=== PATIENT | male | born 1970 | race Caucasian/White ===

== ENCOUNTER 2016-11-18 15:48 | Emergency (ER) | payer BC ==
--- NOTE | 2016-11-18 16:14 | ED Physician Documentation ---
Abdominal Pain - HISTORIAN Historian: patient - HPI Stated Complaint: abd pressure Chief Complaint: Abdominal Pain Additonal Information: onset 0600 pulsating ulq abd pressure persists slightly worse as day progresses Onset: other (this am) Duration: waxing, waning Timing: worse Context: denies: out of country travel, bad food Severity: moderate Quality: other (pressure) Associated Symptoms: none, other (had normal brown BM this am). denies: fever, chills, nausea, vomiting, diarrhea, back pain, neck pain - ROS CONST: no problems GI/: denies: constipation, black stools, bloody stools, dark urine, problems urinating CVS/RESP: none EYES/ENT: none MS/SKIN/LYMPH: none NEURO/PSYCH: none - SOCIAL HX Smoking History: non-smoker Alcohol Use: occasionally Drug Use: none - FAMILY HX Family History: no significant history - PAST HX Past History: GERD, other (pulmonary embolus) Other History: none Surgeries/Procedures: other (bilat ing hernia) Home Medications: Ambulatory Orders Medication Instructions Recorded Omeprazole [Prilosec] 20 mg PO DAILY 11/18/16 Rivaroxaban [Xarelto] 10 mg PO DAILY 11/18/16 Allergies/Adverse Reactions: Allergies Allergy/AdvReac Type Severity Reaction Status Date / Time No Known Allergies Allergy Verified 11/18/16 16:09 - VITAL SIGNS Vital Signs: Vital Signs Temp Pulse Resp BP Pulse Ox 98.3 F 85 22 140/87 96 11/18/16 16:00 11/18/16 16:00 11/18/16 16:00 11/18/16 16:00 11/18/16 16:00 - REVIEWED ASSESSMENTS Nursing Assessment Reviewed: Yes Vitals Reviewed: Yes ED Results Lab/Radiology - Lab Results Lab Results: Lab Results 11/18/16 11/18/16 11/18/16 16:30 16:30 16:30 WBC 8.00 K/ul K/ul (4.00-12.00) RBC 4.67 M/ul M/ul (3.90-5.20) Hgb 14.8 g/dL g/dL (12.0-18.0) Hct 42.1 % % (37.0-53.0) MCV 90.2 fl fl (80.0-100.0) MCH 31.7 pg pg (28.0-34.0) MCHC 35.1 g/dL g/dL (30.0-36.0) RDW 12.8 % % (11.3-14.3) Plt Count 219 K/mm3 K/mm3 (130-400) Neut % (Auto) 59.6 % % (39.0-79.0) Lymph % (Auto) 30.5 % % (16.0-50.0) [place] % (Auto) 4.2 % % (0.0-11.0) Eos % (Auto) 3.0 % % (0.0-6.8) Baso % (Auto) 1.3 (0.0-1.5) Neut # (Auto) 4.8 # k/uL # k/uL (1.4-7.7) Lymph # (Auto) 2.4 # k/uL # k/uL (0.6-4.0) [place] # (Auto) 0.3 # k/uL # k/uL (0.0-0.9) Eos # (Auto) 0.2 # k/uL # k/uL (0.0-0.6) Baso # (Auto) 0.1 # k/uL # k/uL (0.0-0.5) Reactive Lymphs % 1.5 % % (0.0-5.0) Reactive Lymphs # 0.1 # k/uL # k/uL (0.0-0.8) Sodium 140 mmol/L mmol/L (136-145) Potassium 3.6 mmol/L mmol/L (3.5-5.0) Chloride 104 mmol/L mmol/L (98-110) Carbon Dioxide 28 mmol/L mmol/L (20-32) BUN 16 mg/dL mg/dL (10-26) Creatinine 1.2 mg/dL mg/dL (0.4-1.5) Estimated Creat Clear 129 Est GFR ( Amer) > 60 (60 - ) Est GFR (Non-Af Amer) > 60 (60 - ) Glucose 101 mg/dL H mg/dL (70-99) Calcium 9.9 mg/dL mg/dL (8.5-10.5) Total Bilirubin 0.4 mg/dL mg/dL (0.2-1.2) AST 28 U/L U/L (0-41) ALT 39 U/L U/L (0-45) Alkaline Phosphatase 73 U/L U/L (46-116) Total Protein 8.2 g/dL g/dL (6.0-8.5) Albumin 4.9 g/dL g/dL (3.0-5.5) Amylase 81 U/L U/L (20-104) Urine Color Yellow (YELLOW) Urine Appearance Clear (CLEAR) Urine pH 6.0 (5.0 - 8.0) Ur Specific [place] 1.025 (1.010-1.030) Urine Protein Negative mg/dL mg/dL (NEGATIVE) Urine Ketones 2+ mg/dL H mg/dL (NEGATIVE) Urine Occult Blood Trace-intact (NEGATIVE) Urine Nitrite Negative (NEGATIVE) Urine Bilirubin Negative (NEGATIVE) Urine Urobilinogen 0.2 Eu Eu (0.2-1.0) Ur Leukocyte Esterase Negative (NEGATIVE) Urine Glucose Negative mg/dL mg/dL (NEGATIVE) - Orders Orders: ED Orders Category Date Time Status CT ABD & PELVIS W & W/O CON Stat Exams 11/18/16 Taken AMYLASE Routine Lab 11/18/16 16:30 Completed CBC/PLATELET/DIFF Routine Lab 11/18/16 16:30 Completed CMP Routine Lab 11/18/16 16:30 Completed URINALYSIS Routine Lab 11/18/16 16:30 Completed Abdominal Pain Physical Exam - Physical Exam General Appearance: mild distress, moderate distress NECK: normal inspection, supple RESPIRATORY: no resp distress, breath sounds normal CVS: reg rate & rhythm, heart sounds normal ABDOMEN: soft ([id number] relieves symptoms slightly) BACK: normal inspection, no CVA tenderness NEURO: oriented X3, CN's nml as tested, motor nml, sensation nml, mood/affect nml Vital Signs: Vital Signs Temp Pulse Resp BP Pulse Ox 98.3 F 85 22 140/87 96 11/18/16 16:00 11/18/16 16:00 11/18/16 16:00 11/18/16 16:00 11/18/16 16:00 Discharge Clincal Impression: un dx abd pain, nephrolithiasis, poss constipation, slight dehydration Referrals: Primary Doctor,No [Primary Care Provider] - 2 Days Comments: home hydrate consider laxative rt ed prn khurram if sy worsen. pt is on ketogenic diet for wt control Condition: Good Disposition: 01 HOME, SELF-CARE Decision to Admit: NO Decision Time: 19:08
[2016-11-18 16:35] LABS: BASOPHILS % 1.3 (0.0-1.5); MEAN CORPUSCULAR HEMOGLOBIN 31.7 pg (28.0-34.0); MEAN CORPUSCULAR VOLUME 90.2 fl (80.0-100.0); MONOCYTES % 4.2 % (0.0-11.0); NEUTROPHILS # 4.8 # k/uL (1.4-7.7)
[2016-11-18 16:36] LABS: APPEARANCE,URINE Clear (CLEAR); COLOR,URINE Yellow (YELLOW); OCCULT BLOOD,URINE Trace-intact (NEGATIVE); UROBILINOGEN URINE 0.2 Eu (0.2-1.0)
[2016-11-18 16:52] LABS: eGFR (African) > 60; eGFR (Non-African) > 60
[2016-11-18 19:15] VITALS: BP 129/78
--- NOTE | 2016-11-18 21:19 | Diagnostic Imaging Report ---
SHEILA OATES [facility] [address] [facility] [address] [place], [place]. [address] Report Submission Date: Nov 18, 2016 6:08:35 PM CDT Patient Study Name: EFFIE CANCINO Date: Nov 18, 2016 5:22:35 PM CDT Modality Type: CT\SR Gender: M Description: CT ABD & PELVIS W/ AND W/O : 72 Institution: [facility] Physician: SHEILA OATES Examination: CT Abdomen/pelvis History: Possible aneurysm Comparison exams: None available Technique: CT Abdomen/pelvis without and with contrast protocol. Findings: Pre and postcontrast imaging obtained the abdomen and pelvis. Liver, spleen, adrenal glands, pancreas and gallbladder are without irregularity. No abnormal enhancement. No gallstone. Kidneys demonstrate some mild calyceal calcifications. Ureters are nondilated in their course through the abdomen and pelvis. 2.4 cm right renal cyst. Abdominal aorta without peripheral atherosclerotic disease. No abnormal dilation. Cardiac silhouette not enlarged. No pericardial effusion. Bowel without contrast limiting evaluation. No evidence for acute mesenteric inflammation or free air. Stool throughout the large bowel limiting sensitivity. No abnormal bowel dilation. Appendix is visualized and is without inflammatory changes. Osseous structures demonstrate degenerative changes. Lung bases dependent atelectasis. No effusion. Impression: No evidence for abdominal aortic aneurysm. No evidence for dissection. Bilateral nephrolithiasis. No ureteral dilation. No abdominal mass or inflammatory process. No abnormal bowel dilation. Electronically signed on Nov 18, 2016 6:08:35 PM CDT by: Marino VALADEZ
== END 2016-11-18 19:10 | disposition home or self-care (01) ==
LOC: ED 15:48
DX: N20.0 Calculus of kidney (principal)
CPT/HCPCS: 74178; 80053; 81002; 82150; 85025; Q9966; 99283; S1016